=== PATIENT | male | born 1975 | race African-American/Black ===

== ENCOUNTER 2020-10-17 21:16 | Inpatient (IN) | payer MEDICAID ==
[~2020-10-17] VITALS: Ht 195.6 cm; Wt 111.1 kg
[2020-10-17] MEDS ORDERED: HYDROCODONE/ACETAMINOPHEN 5/325MG TABLET PO STA (22:49)
[2020-10-18 03:58] LABS: BASOPHILS % 0.2 % (0.0-2.0); EOSINOPHILS % 0.7 % (0.0-5.0); HEMATOCRIT. 36.1 % (42.0-52.0); HEMOGLOBIN. 11.9 g/dL (14.0-18.0); LYMPHOCYTES % 17.9 % (20.0-50.0); MEAN CORPUSCULAR HEMOGLOBIN 31.3 pg (28.0-32.0); MEAN CORPUSCULAR VOLUME 95.3 fL (80.0-94.0); MEAN PLATELET VOLUME 7.5 fl (7.4-10.4); MONOCYTES % 12.1 % (2.0-8.0); NEUTROPHILS % 69.1 % (40.0-76.0); PLATELET 396 x1000/uL (130-400); RED BLOOD CELL COUNT 3.79 mill/uL (4.7-6.1); RED CELL DISTRIBUTION WIDTH 14.2 % (11.6-14.6)
[2020-10-18 04:05] LABS: CHLORIDE 109 mEq/L (98-107)
[2020-10-18 04:09] LABS: PROTHROMBIN TIME 11.1 sec (9.6-11.0)
[2020-10-18] MEDS ORDERED: MORPHINE SULFATE 4 MG/ML CPJ (NOT FOR IM USE) IV STA (04:41)
[2020-10-18] MEDS ORDERED: IBUPROFEN 600MG TABLET PO PRN (05:45)
[2020-10-18 08:30] VITALS: BP 143/89
[2020-10-18 10:36] VITALS: BP 143/89
[2020-10-18] MEDS ORDERED: DETLA2 PO (11:20)
[2020-10-18] MEDS ORDERED: TERA2CAP4 PO (11:29)
[2020-10-18 12:00] VITALS: BP 115/86
[2020-10-18] MEDS ORDERED: HYDROCODONE/ACETAMINOPHEN 10/325MG TABLET PO PRN (14:00)
[2020-10-18] MEDS: ENOXAPARIN 40MG/0.4ML SYR SUBCUT SCH (14:30)
[2020-10-18 16:00] VITALS: BP 105/69
[2020-10-18] MEDS: MORPHINE SULFATE 2 MG/ML CPJ (NOT FOR IM USE) IV PRN ×2 (17:38→22:21)
[2020-10-18 20:00] VITALS: BP 131/71
[2020-10-18] MEDS ORDERED: ONDANSETRON HCL 4MG/2ML INJ IV PRN (21:00)
[2020-10-19] VITALS: BP 138/73
[2020-10-19 04:00] VITALS: BP 135/75
[2020-10-19 08:00] VITALS: BP 101/43
[2020-10-19] MEDS: ENOXAPARIN 40MG/0.4ML SYR SUBCUT SCH (11:30)
[2020-10-19] MEDS: MORPHINE SULFATE 2 MG/ML CPJ (NOT FOR IM USE) IV PRN (11:32)
[2020-10-19 12:03] VITALS: BP 134/90
[2020-10-19 15:37] VITALS: BP 144/85
[2020-10-19 16:00] VITALS: BP 144/85
== END 2020-10-19 18:02 | disposition home or self-care (01) | DRG 342 ==
LOC: ER 21:16 → 6EST 10-18 05:41 → ENRESERV 10-18 08:02
PROVIDERS: ADMIT Family Medicine; ATTEND Family Medicine
PROC: 2W3MX1Z Immobilization of Left Lower Extremity using Splint (ICD-10-PCS; principal; 2020-10-18)
DX: S82.392A Other fracture of lower end of left tibia, initial encounter for closed fracture (principal); G82.20 Paraplegia, unspecified; M17.10 Unilateral primary osteoarthritis, unspecified knee; M85.80 Other specified disorders of bone density and structure, unspecified site; R33.9 Retention of urine, unspecified; W18.39XA Other fall on same level, initial encounter; Y93.89 Activity, other specified; Y92.89 Other specified places as the place of occurrence of the external cause; Z99.3 Dependence on wheelchair; Y99.8 Other external cause status
CPT/HCPCS: 36415; 71045; 73060; 73080; 73562; 73590; 73610; 73630; 80053; 84484; 85025; 99285; J1650; J2270; J2405